=== PATIENT | male | born 1980 | race Caucasian/White ===

== ENCOUNTER 2016-12-09 16:06 | Emergency (ER) | payer MEDICAID ==
[~2016-12-09 16:06] MED LIST: ASPI-556 PO; LISI-662 PO; PERCT PO
== END 2016-12-09 17:54 | disposition left against medical advice (07) ==
LOC: EMS 16:11
DX: I10 Essential (primary) hypertension (principal); Z53.21 Procedure and treatment not carried out due to patient leaving prior to being seen by health care provider